=== PATIENT | male | born 1970 | race Caucasian/White ===

== ENCOUNTER 2017-03-13 11:07 | Emergency (ER) | payer BC ==
[~2017-03-13] VITALS: Ht 190.5 cm; Wt 102.1 kg
[2017-03-13 11:18] VITALS: BP 116/77
[2017-03-13] MEDS ORDERED: Bacitracin Oint UD TOPIC ONE ×2 (11:57→12:15)
[2017-03-13] MEDS ORDERED: Lidocaine 1% Plain 30 ml INJ ONE (12:00)
[2017-03-13] MEDS ORDERED: Tetanus/Diptheria/Pertussis Vaccine 0.5ml Syr IM ONE (12:00)
--- NOTE | 2017-03-13 13:13 | Emergency Room Report ---
History of Present Illness General Chief Complaint: Laceration Source: Patient Present Illness HPI The patient states that he was at work when he slipped and scraped his left lower leg on the edge of a concrete step. He states this happened just prior to arrival. He did irrigate the wound with some water. He has no other injuries or complaints. He is unsure and does not think that his tetanus shot is up-to-date. Allergies: Coded Allergies: No Known Allergies (Unverified , 03/13/17) Patient History Past Medical History: none Past Surgical History: none Social History: Denies: smoking, alcohol use, drug use Reviewed Nursing Documentation: PMH: Agreed, PSxH: Agreed Nursing Documentation-PMH Past Medical History: No Stated History Review of Systems All Other Systems: negative except mentioned in HPI Physical Exam Vital Signs Date Time Temp Pulse Resp B/P (MAP) Pulse Ox O2 Delivery O2 Flow Rate FiO2 03/13/17 11:11 97.9 91 20 116/77 96 Room Air Sp02 EP Interpretation: reviewed, normal General Appearance: no apparent distress, alert, GCS 15, non-toxic Head: normocephalic, atraumatic Eyes: bilateral eye normal inspection, bilateral eye PERRL ENT: hearing grossly normal, no angioedema, normal voice Neck: normal inspection, full range of motion Respiratory: no respiratory distress, no retraction, no accessory muscle use, speaking full sentences Rectal: deferred Musculoskeletal: back normal, gait/station normal, normal range of motion, other - See skin exam Neurologic: alert, oriented x3, responsive, motor strength/tone normal, sensory intact, speech normal Psychiatric: judgement/insight normal, memory normal, mood/affect normal, no suicidal/homicidal ideation Skin: well hydrated, other - L. reyes with abrasions along anterior tibia/reyes total [id number]. 2cm laceration lower reyes through skin. No muscle involvement. No FB identitifed. Procedures Laceration/Wound Repair Laceration/Wound Repair : Consent: Verbal Wound Location: lower extremity Wound's Depth, Shape: superficial Wound Length (cm): 2 Wound Explored: no foreign body removed Irrigated w/ Saline (ccs): 2000 Anesthesia: 1% Lidocaine Volume Anesthetic (ccs): 3 Wound Repaired With: sutures Suture Size/Type: 4:0, proline Number of Sutures: 5 Patient Tolerated: Well Complications: None Medical Decision Making Diagnostic Impression: Primary Impression: Laceration Additional Impression: Multiple abrasions ER Course Patient has abrasions and a 2 cm laceration of his left lower extremity. The laceration was repaired with sutures. See my procedure note. He also has multiple abrasions. His wounds were irrigated and cleaned and dressed. His tetanus shot was updated. I will also place the patient of course of antibiotics to prevent infection. He tolerated the procedure without complication or incident. He was given instructions on suture removal and wound care precautions. Other X-Ray Diagnostic Results Other X-Ray Diagnostic Results : X-Ray ordered: L. tib/fib # of Views/Limited Vs Complete: 3 View Indication: Other - laceration, r/o fb EP Interpretation: Yes Interpretation: no fractures, other - no fb Impression: No acute disease Electronically Signed by: Svitlana Last Vital Signs Date Time Temp Pulse Resp B/P (MAP) Pulse Ox O2 Delivery O2 Flow Rate FiO2 03/13/17 11:18 20 116/77 96 Room Air 03/13/17 11:11 97.9 91 Status: improved Disposition: HOME, SELF-CARE Condition: Improved Referrals: NON PHYSICIAN (PCP) Patient Instructions: Laceration Care, Adult ADAMS MENDEZ D.O. Mar 13, 2017 13:13
[2017-03-13] MEDS ORDERED: VIBRAMYCIN100 MG ORAL (13:14)
[2017-03-13 13:30] VITALS: BP 123/76
--- NOTE | 2017-03-13 14:42 | Diagnostic Imaging Report ---
Indication: PAIN Technique: 2 views of the left tibia and fibula Comparison: none Findings: No acute fractures. No dislocations. No radiopaque foreign body demonstrated. The joint spaces are preserved. No definite soft tissue defect correlate with the stated clinical history of laceration demonstrated Impression: Negative
== END 2017-03-13 13:30 | disposition home or self-care (01) ==
LOC: EMR 11:40
DX: S81.812A Laceration without foreign body, left lower leg, initial encounter (principal); S80.812A Abrasion, left lower leg, initial encounter; W45.8XXA Other foreign body or object entering through skin, initial encounter; Y92.89 Other specified places as the place of occurrence of the external cause; Z23 Encounter for immunization
CPT/HCPCS: 12001; 73590; 90471; 90715; 99283; J2001